=== PATIENT | female | born 1990 | race Caucasian/White ===

== ENCOUNTER 2018-08-26 16:39 | Observation (INO) ==
[2018-08-26] MEDS ORDERED: PHENERGAN IM PRN (16:57)
[2018-08-26] MEDS: NS 1,000 ML IV SCH (17:30)
[2018-08-26] MEDS: ZOFRAN IV PRN ×2 (17:46→21:39)
[2018-08-26] MEDS: DILAUDID IV PRN ×3 (17:46→23:57)
[2018-08-27] MEDS: NS 1,000 ML IV SCH (05:52)
[2018-08-27 06:44] LABS: HEMATOCRIT 30.8 % (37.0-47.0); HEMOGLOBIN 9.9 g/dL (12.0-16.0); MCH 30.7 PG (27-31); MCHC 32.1 g/dL (33-37); MCV 95.7 FL (81-99); MPV 9.6 FL (7.4-10.4); RBC 3.22 XMIL (4.2-5.4); RDW 15.6 % (11.5-14.5); WBC 4.53 X1000 (4.8-10.8)
[2018-08-27] MEDS ORDERED: STERILE WATER INJ. ONE (06:53)
[2018-08-27] MEDS ORDERED: NS 500 ML ONE (06:59)
[2018-08-27 07:19] LABS: AGAP 8; ALB/GLOB RATIO 1.5; ALBUMIN 3.4 g/dL (3.5-5.0); ALKALINE PHOSPHATASE 77 U/L (32-104); BUN 6 mg/dL (8-22); CALCIUM 7.8 mg/dL (8.8-10.2); CHLORIDE 109 mmol/L (98-107); COSMO 282; CREATININE 0.8 mg/dL (0.5-0.9); ESTIMATED GFR > 60; GLUCOSE 89 mg/dL (70-104); GOT 78 U/L (10-30); GPT 115 U/L (10-36); POTASSIUM 3.6 mmol/L (3.5-5.1); SODIUM 143 mmol/L (136-145); TCO2 26 mmol/L (25-35); TOTAL BILIRUBIN 1.02 mg/dL (0.20-1.00); TOTAL PROTEIN 5.6 g/dL (6.3-8.3)
[2018-08-27] MEDS: DILAUDID IV PRN (08:29)
[2018-08-27] MEDS: ZOFRAN IV PRN (08:29)
--- NOTE | 2018-08-27 08:40 | Diag Imaging Result Doc PS360 ---
EXAM: HIDA SCAN W/ EJECTION FRACTION - 08/27/2018 HISTORY: ABD PAIN TECHNIQUE: HIDA scan with ejection fraction. Exam performed using 5.4 mCi technetium 99m Choletec administered intravenously. COMPARISON: None. FINDINGS: There is prompt tracer uptake by the liver. The gallbladder is probably visualized, with gallbladder activity first visible approximately 10 minutes following tracer administration. The gallbladder ejection fraction is currently following administration of 1.5 mcg intravenous CCK. The ejection fraction is calculated at 8%, which is low. There is passage of tracer into the small bowel when the gallbladder contracts. IMPRESSION: Prompt visualization of gallbladder. Low gallbladder ejection fraction at 8%. Electronically signed by Gurpreet Stokes 08/27/2018 8:38 AM
[2018-08-27] MEDS ORDERED: SENSORCAINE-MPF 0.5%/EPI 1:200,000 ONE (09:13)
[2018-08-27] MEDS ORDERED: LR 1,000 ML ONE (09:13)
[2018-08-27] MEDS ORDERED: SODIUM CHLORIDE 0.9% ONE (09:13)
[2018-08-27] MEDS ORDERED: DIPRIVAN 1% ONE (09:23)
[2018-08-27] MEDS ORDERED: FENTANYL ONE (09:24)
[2018-08-27] MEDS ORDERED: QUELICIN (DOSE) ONE (09:25)
[2018-08-27] MEDS ORDERED: TORADOL ONE (09:26)
[2018-08-27] MEDS ORDERED: ZEMURON ONE (09:26)
[2018-08-27] MEDS ORDERED: DECADRON ONE (09:28)
[2018-08-27] MEDS ORDERED: VERSED ONE ×2 (09:30→10:43)
[2018-08-27] MEDS ORDERED: LEVAQUIN 500 MG/D5W 500 MG/100 ML IVPB ONE (09:48)
[2018-08-27] MEDS ORDERED: NEOSTIGMINE ONE (10:29)
[2018-08-27] MEDS ORDERED: LEVAQUIN 500 MG/D5W 500 MG/100 ML IVPB IV ONE (10:30)
--- NOTE | 2018-08-27 10:38 | Diag Imaging Result Doc PS360 ---
OPERATIVE CHOLANGIOGRAM - 08/27/2018 INDICATION: GALLBLADDER DX TECHNIQUE: The exam was performed by the patient's surgeon. Total fluoroscopy time was 13 seconds. One image was obtained. COMPARISON: None FINDINGS: Contrast was infused into the cystic duct remnant. This outlines a normal common bile duct. There is good passage of contrast into the duodenum. There was also a little bit of reflux into the main pancreatic duct which also appears normal. IMPRESSION: No complication. Electronically signed by Kev Malik 08/27/2018 10:35 AM
[2018-08-27] MEDS ORDERED: NORCO-10 ONE (11:07)
[2018-08-27] MEDS: DILAUDID ONE ×3 (11:15→11:31)
--- NOTE | 2018-08-27 11:23 | OPERATIVE NOTE ---
PROCEDURE DATE: 08/27/2018 PREOPERATIVE DIAGNOSES: 1. Acalculous cholecystitis. 2. Biliary dyskinesia. POSTOPERATIVE DIAGNOSES: 1. Acalculous cholecystitis. 2. Biliary dyskinesia. PROCEDURE: Laparoscopic cholecystectomy with operative cholangiogram. SURGEON: Ab Jauregui MD. ANESTHESIA: General. ESTIMATED BLOOD LOSS: 3 mL. COMPLICATIONS: None apparent. SPECIMENS: Gallbladder. FINDINGS: The gallbladder was distended. There were no apparent stones. It did appear to be chronically inflamed. The cholangiogram revealed normal hepatic radicles in distal bile duct with flow of contrast into the duodenum and without filling defects or stenoses. TECHNIQUE: The patient was brought to the operating room and placed supine on the table. General anesthesia was induced. She was prepped and draped in usual sterile fashion. Then 0.25% Marcaine with epinephrine was used to anesthetize our incisions. An 11 mm incision was made above the umbilicus. The fascia was exposed and incised sharply. Entry into the peritoneal cavity was obtained under direct vision with the Optiview device. Pneumoperitoneum was established. The camera was inserted. There was no evidence of injury to any underlying structures. She was placed in reverse Trendelenburg and left rotation. Three 5 mm incision ports were placed across the epigastrium and right upper quadrant per usual routine under direct vision. The dome of the gallbladder was grasped by the licensed nursing assistant with an Allis clamp and lifted up superiorly. The peritoneum was teased away from the triangle of Calot with the [place] forceps and hook cautery. The critical view was obtained the gallbladder-liver junction was seen. There were only 2 structures entering the gallbladder, the cystic duct and cystic artery. The cystic duct was clipped on the gallbladder side, and a ductotomy was made proximal to this with scissors. A 14- gauge Angiocath was passed through the right upper quadrant. The Taut cholangiogram catheter was passed through this into the cystic duct and held in place with a clip. The cholangiogram was performed with findings as noted above. The clip, catheter, and Angiocath were removed 2 clips were placed on the staying inside the cystic duct and it was divided distal to these with scissors. The cystic artery was clipped proximally and distally and divided in between with scissors. The gallbladder was removed from the liver bed using hook cautery obtaining hemostasis along the way. After this was accomplished, the dissection area was inspected. There was no signs of any bleeding or bile leakage. The gallbladder was then brought out through the umbilical port site under direct vision. I then closed the umbilical fascia under direct vision with the Claude- Christopher device and a 0 Vicryl. The abdomen was desufflated. The ports were removed. The skin was closed with a running 4-0 subcuticular Monocryl and Steri-Strips. There were no apparent complications. She was awakened in stable condition and transferred to the recovery room. cc: Ab Jauregui MD
[2018-08-27] MEDS ORDERED: ZOFRAN IV PRN (11:27)
[2018-08-27] MEDS ORDERED: NORCO-10 PO PRN (11:27)
[2018-08-27 16:39] VITALS: BP 106/68
== END 2018-08-27 16:16 | disposition home or self-care (01) ==
LOC: DIRADM → 4N 16:39
PROVIDERS: ADMIT Surgery; ATTEND Surgery
CPT/HCPCS: 74300; 78227; 80053; 82150; 83690; 85025; 85027; 88304; 96361; 96374; 96375; 96376; 99283; A9270; A9537; C1751; J0330; J1100; J1170; J1885; J1956; J2175; J2250; J2405; J2550; J3010; J7030; J7040; J7120; Q9966; Q9967